=== PATIENT | female | born 1980 | race Caucasian/White ===

== ENCOUNTER 2018-05-24 19:37 | Emergency (ER) | payer OTHER ==
[~2018-05-24] VITALS: Ht 157.5 cm; Wt 95.3 kg
[2018-05-24 19:49] VITALS: BP 159/96
--- NOTE | 2018-05-25 02:24 | ED.ADGEN ---
Past History Past Medical History: Hypothyroid Past Surgical History: , Tonsillectomy, Other Alcohol Use: Occasionally Drug Use: None Adult General Chief Complaint Chief Complaint B ear pain, sore throat HPI HPI Patient is a 37-year-old female presents with nasal congestion, rhinorrhea, bilateral ear pain and sore throat. No chest pain, shortness breath, wheezing. No fever chills sweats, rash, neck pain or stiffness. No other acute symptoms or complaints. Patient is currently taking Mucinex, Sudafed ephedrine and Zyrtec with limited relief. Patient is a nonsmoker. [] Review of Systems Review of Systems Review symptoms as per history of present illness. All other review symptoms are negative. All other systems were reviewed and found to be within normal limits, except as documented in this note. Allergies Allergies Allergies Coded Allergies Type Severity Reaction Last Updated Verified No Known Drug Allergies 11/20/15 No Physical Exam Physical Exam Constitutional: Well developed, well nourished, no acute distress, non-toxic appearance. [] HENT: Normocephalic, atraumatic, bilateral external ears normal, TMs bulging with clear effusion, no otorrhea. oropharynx moist no pharyngeal erythema, minimal uvular swelling, nose, congestion[] Eyes: PERRLA, EOMI, conjunctiva normal, no discharge. [] Neck: Normal range of motion, no tenderness, supple, no stridor. [] Cardiovascular:Heart rate regular rhythm, no murmur [] Lungs & Thorax: Bilateral breath sounds clear to auscultation [] Abdomen: Bowel sounds normal, soft, no tenderness. [] Skin: Warm, dry, no erythema, no rash. [] Back: No tenderness, no CVA tenderness. [] Extremities: No tenderness, no cyanosis, no clubbing, ROM intact, no edema. [] Neurologic: Alert and oriented X 3, normal motor function, normal sensory function, no focal deficits noted. [] Psychologic: Affect normal, judgement normal, mood normal. [] Current Patient Data Vital Signs Vital Signs Date Time Temp Pulse Resp B/P (MAP) Pulse Ox O2 Delivery O2 Flow Rate FiO2 05/24/18 19:49 97.8 81 18 97 Room Air EKG EKG [] Radiology/Procedures Radiology/Procedures [] Course & Med Decision Making Course & Med Decision Making Pertinent Labs and Imaging studies reviewed. (See chart for details) [Recommend continued supportive care.] Final Impression Final Impression [#1 upper respiratory tract infection3@ bilateral serous otitis media] Tirso Disclaimer Tirso Disclaimer This electronic medical record was generated, in whole or in part, using a voice recognition dictation system. GLORIA PITTS DO May 25, 2018 02:24
== END 2018-05-24 20:07 | disposition home or self-care (01) ==
LOC: ER 19:37
DX: J06.9 Acute upper respiratory infection, unspecified (principal); H65.93 Unspecified nonsuppurative otitis media, bilateral; E03.9 Hypothyroidism, unspecified
CPT/HCPCS: 99281